=== PATIENT | male | born 1990 | race Caucasian/White ===

== ENCOUNTER 2016-06-25 17:52 | Emergency (ER) | payer SELFPAY ==
[~2016-06-25] VITALS: Ht 172.7 cm; Wt 65.5 kg
[~2016-06-25 17:52] MED LIST: CARAFATE1 GM PO; NAPROSYN500 MG PO; NOHOMEMEDS
[2016-06-25] MEDS ORDERED: PEN-VEE K,VEET500 MG PO (18:41)
[2016-06-25] MEDS ORDERED: NORCO 5/3251 TABLET PO (18:41)
[2016-06-25 18:45] VITALS: BP 116/50
== END 2016-06-25 18:50 | disposition home or self-care (01) ==
LOC: RME 17:52 → EME 17:52 → RME 18:50
DX: K04.7 Periapical abscess without sinus (principal); F17.200 Nicotine dependence, unspecified, uncomplicated
CPT/HCPCS: 99281; 99284

== ENCOUNTER 2017-07-13 12:01 | Emergency (ER) | payer SELFPAY ==
[~2017-07-13] VITALS: Ht 172.7 cm; Wt 68.6 kg
[~2017-07-13 12:01] MED LIST changes: +NORCO 5/3251 TABLET PO; +PEN-VEE K,VEET500 MG PO
[2017-07-13 12:30] VITALS: BP 124/82
[2017-07-13] MEDS ORDERED: MOTRIN600 MG PO (13:17)
== END 2017-07-13 13:26 | disposition home or self-care (01) ==
LOC: EME 12:01
DX: J02.8 Acute pharyngitis due to other specified organisms (principal); B97.89 Other viral agents as the cause of diseases classified elsewhere; F17.200 Nicotine dependence, unspecified, uncomplicated; R56.9 Unspecified convulsions
CPT/HCPCS: 87651 90; 99281; 99283

== ENCOUNTER 2017-07-21 16:24 | Emergency (ER) | payer SELFPAY ==
[~2017-07-21] VITALS: Ht 172.7 cm; Wt 67.9 kg
[~2017-07-21 16:24] MED LIST changes: +MOTRIN600 MG PO
[2017-07-21] MEDS ORDERED: MOTRIN800 MG PO (17:43)
[2017-07-21 18:00] VITALS: BP 122/64
== END 2017-07-21 18:01 | disposition home or self-care (01) ==
LOC: EME 16:24
DX: S96.912A Strain of unspecified muscle and tendon at ankle and foot level, left foot, initial encounter (principal); X58.XXXA Exposure to other specified factors, initial encounter; Y92.480 Sidewalk as the place of occurrence of the external cause
CPT/HCPCS: 73630; 99281; 99284

== ENCOUNTER 2017-11-28 08:39 | Emergency (ER) | payer SELFPAY ==
[~2017-11-28] VITALS: Ht 175.3 cm; Wt 66.2 kg
[~2017-11-28 08:39] MED LIST changes: +MOTRIN800 MG PO
[2017-11-28] MEDS ORDERED: KEFLEX500 MG PO (10:02)
[2017-11-28 10:59] VITALS: BP 121/78
== END 2017-11-28 11:00 | disposition home or self-care (01) ==
LOC: EME 08:39
PROC: 3E0234Z Introduction of Serum, Toxoid and Vaccine into Muscle, Percutaneous Approach (ICD-10-PCS; principal; 2017-11-28)
PROC: 0HQFXZZ Repair Right Hand Skin, External Approach (ICD-10-PCS; principal; 2017-11-28)
DX: S61.212A Laceration without foreign body of right middle finger without damage to nail, initial encounter (principal); W26.8XXA Contact with other sharp object(s), not elsewhere classified, initial encounter; Z23 Encounter for immunization; Z88.8 Allergy status to other drugs, medicaments and biological substances
CPT/HCPCS: 73140; 99281; 99284